=== PATIENT | female | born 1980 | race Caucasian/White ===

== ENCOUNTER 2022-03-05 22:00 | Emergency (ER) | payer BC ==
[~2022-03-05] VITALS: Ht 154.9 cm; Wt 54.4 kg
[2022-03-05 22:32] LABS: BASO % 0.5 % (0.0-1.0); EOS # 0.1 10*3/uL (0.0-0.4); EOS % 1.4 % (1.0-4.0); HEMATOCRIT 41.3 % (37.0-47.0); LYMPH # 4.1 10*3/uL (1.3-4.4); LYMPH % 51.8 % (27.0-41.0); MEAN CELL VOLUME 92.4 fl (81.0-99.0); MEAN CORPUSCULAR HGB 31.1 pg (27.0-31.0); MEAN CORPUSCULAR HGB CONC 33.7 g/dl (33.0-37.0); MEAN PLATELET VOLUME 9.5 fl (9.6-12.3); MONO # 0.5 10*3/uL (0.1-1.0); NEUT # 3.1 10*3/uL (2.3-7.9); PLATELET COUNT AUTOMATED 248 10*3/uL (130-400); RED BLOOD COUNT 4.47 10*6/uL (4.10-5.10); RED CELL DISTRI WIDTH 12.3 % (0-14.5); WHITE BLOOD COUNT 7.9 10*3/uL (4.8-10.8)
[2022-03-05 22:51] LABS: ALKALINE PHOSPHATASE 36 U/L (45-117); BUN 11 mg/dl (7-24); CHLORIDE 109 mmol/L (98-107); CREATININE 0.79 mg/dL (0.55-1.02); POTASSIUM 3.4 mmol/L (3.5-5.1); SGOT/AST 13 IU/L (3-35); SGPT/ALT 18 U/L (12-78); SODIUM 140 mmol/L (136-145); TOTAL PROTEIN 6.4 gm/dL (6.4-8.2)
== END 2022-03-06 00:15 | disposition home or self-care (01) ==
LOC: ED 22:00
PROVIDERS: Nurse Practitioner Family
DX: T78.1XXA Other adverse food reactions, not elsewhere classified, initial encounter (principal); R19.7 Diarrhea, unspecified; X58.XXXA Exposure to other specified factors, initial encounter